=== PATIENT | female | born 1985 | race Hispanic/Latino ===

== ENCOUNTER 2022-04-16 14:41 | Outpatient (CLI) | payer OTHER ==
[2022-04-16 16:18] LABS: Hematocrit 40.2 % (30.3-42.9); Hemoglobin 13.6 gm/dl (10.1-14.3); Mean Corpuscular HGB Conc 34 % (30-34); Mean Corpuscular Volume 92 fl (79-97); Platelet Count 314 K/mm3 (140-440); Red Cell Distribution Width 12.9 % (13.2-15.2)
[2022-04-16 16:32] LABS: Alanine Aminotransferase 12 units/L (7-56); Albumin 4.2 g/dL (3.9-5); Blood Urea Nitrogen 6 mg/dL (7-17); Hemolysis Index 29
[2022-04-16 16:53] LABS: BUN/Creatinine Ratio 10
[2022-04-16 16:54] LABS: Calcium 0.8 mg/dL (8.4-10.2)
== END 2022-04-16 14:42 | disposition home or self-care (01) ==
LOC: LAB 14:41
PROVIDERS: ATTEND Specialist
DX: G35 Multiple sclerosis (principal); G71.9 Primary disorder of muscle, unspecified
CPT/HCPCS: 36415; 80053; 82085; 82306; 82550; 82607; 83921; 84443; 85027; 86592